=== PATIENT | female | born 2000 | race Caucasian/White ===

== ENCOUNTER 2019-09-02 16:27 | Emergency (ER) | payer BC ==
[~2019-09-02] VITALS: Ht 170.2 cm; Wt 61.0 kg
[2019-09-02 17:35] VITALS: BP 130/85
== END 2019-09-02 17:37 | disposition home or self-care (01) ==
LOC: ER 16:27
DX: Z20.818 Contact with and (suspected) exposure to other bacterial communicable diseases (principal)
CPT/HCPCS: 99283; C9803; U0003